=== PATIENT | female | born 1980 | race Caucasian/White ===

== ENCOUNTER 2018-03-30 10:37 | Emergency (ER) | payer OTHER ==
[~2018-03-30] VITALS: Ht 167.6 cm; Wt 59.0 kg
[~2018-03-30 10:37] MED LIST: BACTRIM DS1 TAB OR; CALNA PO; CLARITIN10 M1 PO; CYCLESSA OR; DICLEGIS1 TAB PO; FLONASE NASAL50 MCG; MEDDOSEPAK OR; PHENERGAN SUPP RE; PHENERGAN25 MG/TAB PO; PRENATAL1 TAB OR; PROMETHAZINE25 M1 RE; ROBITUSSIN AC10 ML OR; SINGULAIR10 MG PO; ULTRAM50 MG OR; ZOFRAN ODT4 MG PO; ZOFRAN ODT8 MG SL; ZOFRAN4 MG/TAB PO
[2018-03-30 10:40] VITALS: BP 123/81
[2018-03-30] MEDS ORDERED: TORADOL PO (12:21)
[2018-03-30] MEDS ORDERED: MEDDOSEPAK PO (12:21)
[2018-03-30] MEDS ORDERED: FLEXERIL PO (12:21)
[2018-03-30] MEDS ORDERED: PERCOCET 10/31 COMBO PO (12:21)
== END 2018-03-30 12:40 | disposition home or self-care (01) | DRG 552 ==
LOC: ED 10:37
DX: M51.9 Unspecified thoracic, thoracolumbar and lumbosacral intervertebral disc disorder (principal); J45.909 Unspecified asthma, uncomplicated

== ENCOUNTER 2018-12-16 19:32 | Emergency (ER) | payer OTHER ==
[~2018-12-16] VITALS: Ht 167.6 cm; Wt 67.0 kg
[~2018-12-16 19:32] MED LIST changes: +FLEXERIL PO; +MEDDOSEPAK PO; +PERCOCET 10/31 COMBO PO; +TORADOL PO
[2018-12-16] MEDS ORDERED: CLARITIN RDT10 MG PO (19:57)
[2018-12-16] MEDS ORDERED: BACLOFEN10 MG PO (19:58)
[2018-12-16] MEDS ORDERED: IBUPROFEN600 MG PO (20:52)
[2018-12-16] MEDS ORDERED: MEDDOSEPAK PO (20:52)
[2018-12-16 21:00] VITALS: BP 133/87
== END 2018-12-16 21:00 | disposition home or self-care (01) | DRG 558 ==
LOC: ED 19:32
DX: M70.31 Other bursitis of elbow, right elbow (principal); M25.831 Other specified joint disorders, right wrist

== ENCOUNTER 2019-01-01 16:47 | Emergency (ER) | payer OTHER ==
[~2019-01-01] VITALS: Ht 167.6 cm; Wt 65.0 kg
[~2019-01-01 16:47] MED LIST changes: +BACLOFEN10 MG PO; +CLARITIN RDT10 MG PO; +IBUPROFEN600 MG PO
[2019-01-01 17:47] LABS: HEMATOCRIT 43.2 % (37.0-47.0); HEMOGLOBIN 13.9 g/dl (12.0-16.0); IMMATURE GRANULOCYTES 0.4 % (0.0-5.0); MEAN CELL VOLUME 89.6 fL CALC (80.0-100.0); MEAN CORPUSCULAR HGB 28.8 pG CALC (26.0-32.0); MEAN CORPUSCULAR HGB CONC 32.2 g/L CALC (32.0-36.0); NEUT# 2.2 thou/uL (2.00-7.15); RED BLOOD COUNT 4.82 mill/uL (4.20-5.60); RED CELL DISTRI WIDTH 13.1 % (11.5-15.5)
[2019-01-01 17:48] LABS: URINE BILIRUBIN - DIPSTICK NEGATIVE (NEGATIVE); URINE BLOOD DIPSTICK TRACE-INTACT (NEGATIVE); URINE COLOR YELLOW; URINE GLUCOSE - DIPSTICK NEGATIVE (NEGATIVE); URINE KETONE NEGATIVE (NEGATIVE); URINE LEUK ESTERASE NEGATIVE (NEGATIVE); URINE NITRITE - DIPSTICK NEGATIVE (Negative); URINE PROTEIN - DIPSTICK TRACE mg/dL (NEG-TRACE); URINE SPECIFIC GRAVITY >=1.030; URINE UROBILINOGEN - DIPSTICK 0.2 E.U./dL (0.2)
[2019-01-01 17:56] LABS: COCAINE NEGATIVE (NEGATIVE); TETRAHYDROCANNABIONOL NEGATIVE (NEGATIVE)
[2019-01-01 17:57] LABS: BARBITURATES NEGATIVE (NEGATIVE); METHADONE NEGATIVE (NEGATIVE); OXCYCODONE NEGATIVE (NEGATIVE); TRICYLIC ANTIDEPRESSANTS NEGATIVE (NEGATIVE)
[2019-01-01 18:08] LABS: ALBUMIN 4.7 g/dL (3.2-5.0); ALKALINE PHOSPHATASE 76 u/l (38-126); ANION GAP 15 (6-22 (CALC)); BILIRUBIN, TOTAL 1.4 mg/dL (0.0-1.4); BUN 15 mg/dL (7-17); BUN/CREATININE RATIO 19 (12-20 (CALC)); C-REACTIVE PROTEIN 2.9 mg/dL (0-0.9); CARBON DIOXIDE 24 mmol/l (22-30); CHLORIDE 106 mmol/l (95-108); CREATININE 0.8 mg/dL (0.5-1.0); GFR > 60 ML/MIN (>=60 (CALC)); GFR FOR AFR.AMER. > 60 ML/MIN (>=60 (CALC)); SGOT/AST 24 u/l (14-36); SODIUM 141 mmol/l (137-146); TOTAL PROTEIN 7.7 g/dL (6.3-8.2)
[2019-01-01 18:48] VITALS: BP 124/82
== END 2019-01-01 18:55 | disposition home or self-care (01) | DRG 866 ==
LOC: ED 16:47
DX: B34.9 Viral infection, unspecified (principal); R42 Dizziness and giddiness

== ENCOUNTER 2019-01-02 12:36 | Emergency (ER) | payer OTHER ==
[~2019-01-02] VITALS: Ht 167.6 cm; Wt 70.0 kg
[2019-01-02 13:45] LABS: ALBUMIN 3.9 g/dL (3.2-5.0); ALKALINE PHOSPHATASE 59 u/l (38-126); ANION GAP 11 (6-22 (CALC)); BILIRUBIN, TOTAL 0.8 mg/dL (0.0-1.4); BUN 11 mg/dL (7-17); BUN/CREATININE RATIO 16 (12-20 (CALC)); CARBON DIOXIDE 23 mmol/l (22-30); CHLORIDE 111 mmol/l (95-108); CREATININE 0.7 mg/dL (0.5-1.0); GFR > 60 ML/MIN (>=60 (CALC)); GFR FOR AFR.AMER. > 60 ML/MIN (>=60 (CALC)); POTASSIUM 4.6 mmol/l (3.5-5.1); SGOT/AST 19 u/l (14-36); SODIUM 140 mmol/l (137-146); TOTAL PROTEIN 6.5 g/dL (6.3-8.2)
[2019-01-02 13:58] LABS: HEMATOCRIT 36.7 % (37.0-47.0); HEMOGLOBIN 11.9 g/dl (12.0-16.0); IMMATURE GRANULOCYTES 0.5 % (0.0-5.0); MEAN CELL VOLUME 90.2 fL CALC (80.0-100.0); MEAN CORPUSCULAR HGB 29.2 pG CALC (26.0-32.0); MEAN CORPUSCULAR HGB CONC 32.4 g/L CALC (32.0-36.0); NEUT# 1.2 thou/uL (2.00-7.15); RED BLOOD COUNT 4.07 mill/uL (4.20-5.60); RED CELL DISTRI WIDTH 13.1 % (11.5-15.5)
[2019-01-02 15:22] VITALS: BP 119/74
== END 2019-01-02 15:22 | disposition short-term general hospital (02) | DRG 810 ==
LOC: ED 12:36
DX: D70.9 Neutropenia, unspecified (principal); R53.1 Weakness; R53.83 Other fatigue

== ENCOUNTER 2019-02-01 10:49 | Emergency (ER) | payer OTHER ==
[~2019-02-01] VITALS: Ht 167.6 cm; Wt 70.0 kg
[2019-02-01 10:59] VITALS: BP 141/99
[2019-02-01 11:51] LABS: HEMATOCRIT 38.3 % (37.0-47.0); HEMOGLOBIN 12.3 g/dl (12.0-16.0); IMMATURE GRANULOCYTES 0.2 % (0.0-5.0); MEAN CELL VOLUME 89.9 fL CALC (80.0-100.0); MEAN CORPUSCULAR HGB 28.9 pG CALC (26.0-32.0); MEAN CORPUSCULAR HGB CONC 32.1 g/L CALC (32.0-36.0); NEUT# 3.8 thou/uL (2.00-7.15); RED BLOOD COUNT 4.26 mill/uL (4.20-5.60); RED CELL DISTRI WIDTH 12.9 % (11.5-15.5)
[2019-02-01 12:13] LABS: ALBUMIN 4.5 g/dL (3.2-5.0); ALKALINE PHOSPHATASE 69 u/l (38-126); ANION GAP 12 (6-22 (CALC)); BILIRUBIN, TOTAL 0.9 mg/dL (0.0-1.4); BUN 14 mg/dL (7-17); BUN/CREATININE RATIO 19 (12-20 (CALC)); CARBON DIOXIDE 24 mmol/l (22-30); CHLORIDE 107 mmol/l (95-108); CREATININE 0.7 mg/dL (0.5-1.0); GFR > 60 ML/MIN (>=60 (CALC)); GFR FOR AFR.AMER. > 60 ML/MIN (>=60 (CALC)); POTASSIUM 4.5 mmol/l (3.5-5.1); SGOT/AST 16 u/l (14-36); SODIUM 138 mmol/l (137-146); TOTAL PROTEIN 7.4 g/dL (6.3-8.2)
== END 2019-02-01 12:20 | disposition home or self-care (01) | DRG 605 ==
LOC: ED 10:49
PROVIDERS: Emergency Medicine
DX: S61.233A Puncture wound without foreign body of left middle finger without damage to nail, initial encounter (principal); W46.1XXA Contact with contaminated hypodermic needle, initial encounter; Y93.89 Activity, other specified; Y99.0 Civilian activity done for income or pay

== ENCOUNTER 2020-10-06 16:33 | Emergency (ER) | payer OTHER ==
[~2020-10-06] VITALS: Ht 167.6 cm; Wt 68.0 kg
[2020-10-06 18:55] VITALS: BP 107/71
== END 2020-10-06 18:55 | disposition home or self-care (01) | DRG 605 ==
LOC: ED 16:33
PROC: 0HQFXZZ Repair Right Hand Skin, External Approach (ICD-10-PCS; principal; 2020-10-06)
DX: S61.216A Laceration without foreign body of right little finger without damage to nail, initial encounter (principal); J45.909 Unspecified asthma, uncomplicated; W25.XXXA Contact with sharp glass, initial encounter; Y93.G1 Activity, food preparation and clean up; Y92.000 Kitchen of unspecified non-institutional (private) residence as the place of occurrence of the external cause